=== PATIENT | male | born 1980 | race Asian ===

== ENCOUNTER 2019-02-03 00:05 | Emergency (ER) | payer OTHER ==
[~2019-02-03] VITALS: Ht 162.6 cm; Wt 72.7 kg
[2019-02-03] MEDS ORDERED: HYDROGEN PEROXIDE 118 ML SOLUTION ONE (02:29)
[2019-02-03] MEDS ORDERED: LIDOCAINE 1% 10 ML VIAL ONE (02:57)
[2019-02-03] MEDS ORDERED: LIDOCAINE 1% 10 ML VIAL INJ ONE (03:00)
[2019-02-03 03:25] VITALS: BP 138/80
[2019-02-03] MEDS ORDERED: NEOMYCIN/POLYMYXIN B/HYDROCORT 10 ML OTIC SOLUTION AD ONE (03:30)
== END 2019-02-03 03:41 | disposition home or self-care (01) ==
LOC: EMS 00:07
DX: T16.1XXA Foreign body in right ear, initial encounter (principal); F17.210 Nicotine dependence, cigarettes, uncomplicated; F12.90 Cannabis use, unspecified, uncomplicated; X58.XXXA Exposure to other specified factors, initial encounter; Y93.89 Activity, other specified; Y92.89 Other specified places as the place of occurrence of the external cause; Y99.8 Other external cause status
CPT/HCPCS: 69200; 99284; J3490

== ENCOUNTER 2020-12-22 07:59 | Emergency (ER) | payer OTHER ==
[~2020-12-22] VITALS: Ht 162.6 cm; Wt 68.2 kg
[2020-12-22 08:12] VITALS: BP 121/87
== END 2020-12-22 09:34 | disposition home or self-care (01) ==
LOC: EMS 07:59
DX: S00.412A Abrasion of left ear, initial encounter (principal); F17.210 Nicotine dependence, cigarettes, uncomplicated; F12.90 Cannabis use, unspecified, uncomplicated; X58.XXXA Exposure to other specified factors, initial encounter; Y93.89 Activity, other specified; Y92.89 Other specified places as the place of occurrence of the external cause; Y99.8 Other external cause status
CPT/HCPCS: 99281; Z7502

== ENCOUNTER 2021-04-20 22:53 | Emergency (ER) | payer OTHER ==
[~2021-04-20] VITALS: Ht 167.6 cm; Wt 72.7 kg
[2021-04-20 23:46] LABS: GLUCOSE,POINT OF CARE 126 MG/DL (70-110)
[2021-04-21 05:15] VITALS: BP 108/72
== END 2021-04-21 05:19 | disposition left against medical advice (07) ==
LOC: EMS 22:57
DX: T40.601A Poisoning by unspecified narcotics, accidental (unintentional), initial encounter (principal); F17.210 Nicotine dependence, cigarettes, uncomplicated; F19.90 Other psychoactive substance use, unspecified, uncomplicated; Y92.89 Other specified places as the place of occurrence of the external cause
CPT/HCPCS: 71045; 82948; 82962; 93005; 99285